=== PATIENT | female | born 1995 | race Caucasian/White ===

== ENCOUNTER → 2016-10-29 14:44 | Observation (INO) ==
[2016-10-29 13:39] LABS: Basophils % 0.2 %; Eosinophils % 0.2 %; Hematocrit 37.2 % (35.3-44.9); Hemoglobin 11.7 g/dL (11.5-15.4); Immature Granulocytes % 0.3 % (0-4); Lymphocytes # 1.6 K/mcL (0.6-4.6); Lymphocytes % 16.3 %; Mean Corpuscular HGB Conc 31.5 g/dL (31.6-35.5); Mean Corpuscular Hemoglobin 26.4 pg (28.0-33.3); Mean Platelet Volume 11.6 fL (9.4-12.4); Monocytes # 0.6 K/mcL (0.0-1.3); Monocytes % 5.6 %; Neutrophils # 7.6 K/mcL (1.6-8.9); Platelet Count 189 K/mcL (140-400); Red Blood Count 4.43 M/mcL (3.82-4.97); Red Cell Distribution Width 13.9 % (11.5-14.5); Segmented Neutrophils % 77.4 %
[2016-10-29 13:52] LABS: Alanine Aminotransferase 21 Units/L (0-55); Aspartate Amino Transferase 15 Units/L (5-34); BUN/Creatinine Ratio 17 (6-26); Blood Urea Nitrogen 11 mg/dL (7-20); Lactate Dehydrogenase 170 Units/L (159-327); Uric Acid 3.9 mg/dL (2.6-6.0); eGFR For African Americans > 60 (> 60); eGFR For Non-African Americans > 60 (> 60)
[2016-10-29 14:04] LABS: Protein/Creatinine Ratio,Urine 0.2 mg/mg (0-0.20)
--- NOTE | 2016-10-29 14:30 | OB/GYN Progress Note ---
Date of Encounter: 10/29/16 Time of Encounter: 14:28 - Assessment and Plan (1) 37 weeks gestation of Current Visit: Yes Status: Acute Contractions noted on toco, but patient is not feeling them at this time. NO cervical change from office exam (2) Elevated BP without diagnosis of hypertension Current Visit: Yes Status: Acute All PIH labs WNL. Denies symptoms. BPs in triage last two 119/76, 116/60 Discharge to home with labor and when to return to triage precautions Pt verbalizes understanding Subjective - Subjective Interval history: Pt had elevated BP at home. Pt denies headache, visual changes, vaginal bleeding or leaking of fluid. Reports good movement Antepartum ROS: movement normal, no loss of fluid, no vaginal bleeding, no contractions Objective - Vital Signs Vital Signs: Intake and Output 10/28/16 10/29/16 10/29/16 23:59 07:59 15:59 Other: Weight 115.6 kg Patient Weight 10/29/16 23:59 Weight 115.6 kg - Exam FHR: auscultation normal FHR comments: Baseline 120 Auscultation: bilateral: normal Abdomen: Present: normal appearance, soft, gravid Uterus: Present: normal Cervical dilation: 2/70 per RN - Labs Labs: Abnormal lab results MCH 26.4 pg (28.0-33.3) L 10/29/16 13:26 MCHC 31.5 g/dL (31.6-35.5) L 10/29/16 13:26 Urine Total Protein 44 mg/dL (1-14) H 10/29/16 13:26
== END | disposition home or self-care (01) ==
LOC: 1NENULAB
PROVIDERS: ADMIT Obstetrics & Gynecology; ATTEND Obstetrics & Gynecology

== ENCOUNTER 2016-10-31 00:29 | Inpatient (IN) ==
[~2016-10-31 00:29] MED LIST: Famotidine 20 MG/2 ML VIAL IVP PRN; Naloxone 0.4 MG/ML INJ IVP PRN; Ondansetron 4 MG/2 ML VIAL IVP PRN; Ringers Solution, Lactated 1,000 ML ONE
[2016-10-31] MEDS ORDERED: *HR* Nalbuphine 20 MG/ML AMPUL IVP PRN (00:30)
[2016-10-31] MEDS ORDERED: D5% in Lactated Ringers 1,000 ML IVC SCH (00:30)
[2016-10-31 00:32] LABS: Basophils % 0.1 %; Eosinophils % 0.3 %; Hematocrit 36.4 % (35.3-44.9); Hemoglobin 11.5 g/dL (11.5-15.4); Immature Granulocytes % 0.5 % (0-4); Lymphocytes # 1.6 K/mcL (0.6-4.6); Lymphocytes % 13.8 %; Mean Corpuscular HGB Conc 31.6 g/dL (31.6-35.5); Mean Corpuscular Hemoglobin 26.9 pg (28.0-33.3); Mean Corpuscular Volume 85.2 fL (83.0-100.0); Mean Platelet Volume 11.7 fL (9.4-12.4); Monocytes # 0.8 K/mcL (0.0-1.3); Monocytes % 6.5 %; Neutrophils # 9.4 K/mcL (1.6-8.9); Platelet Count 167 K/mcL (140-400); Red Blood Count 4.27 M/mcL (3.82-4.97); Red Cell Distribution Width 14.1 % (11.5-14.5); Segmented Neutrophils % 78.8 %
--- NOTE | 2016-10-31 00:35 | OB/GYN History & Physical ---
Date of Encounter: 10/31/16 Time of Encounter: 00:37 Assessment and Plan (1) 38 weeks gestation of Current visit: Yes Status: Acute Pt presents with uc's q 2 min and cervical change. Will admit and expect . History of Present Illness Chief complaint: Labor HPI: Ms. Murphy is a 21 year old female female at 38w1 d gestation presents with uc's q 2 min. She denies VB or LOF. In office today her cvx was 3 cm dilated 80 effaced and - 2 station. Her cervix is now 4-5/90/-2 and she is quite uncomfortable. Past Med Surg Social Fam HX - Past Medical History Source: patient, old records reviewed Medical history: no medical history Psychiatric history: no psych history - Past Surgical History Surgical History: no surgical history - Social History Smoking Status: Never smoker Alcohol use: none Drug use: none - Family History Father Living Status: Still Living Hx Family Cancer: Yes Obstetrical History - Pregnancies : 2 Medications and Allergies Vitamins 1 mg PO DAILY 10/29/16 [History] 3 Allergy/AdvReac Type Severity Reaction Status Date / Time No Known Allergies Allergy Verified 10/29/16 13:34 Exam - Constitutional Constitutional: well developed, well nourished, mild distress - HEENT HEENT: EOMI, PERRL - Neck Neck exam: full ROM - Lungs Respiratory exam: CTAB - Cardiovascular Cardiovascular exam: RRR - Abdomen Abdomen: Present: gravid - Extremities Deep Tendon Reflex Grade: 2+ Normal - Cervix Dilation: 5 Effacement: 90 Station: -2 - Uterus Uterus exam: Present: enlarged Results All other labs normal. - VTE Reasons for not Prescribing Prophylaxis: Treatment not Indicated - Low risk for VTE
--- NOTE | 2016-10-31 01:41 | OB Labor Progress Note ---
Date of Encounter: 10/31/16 Time of Encounter: 01:39 Labor Progress Note - Subjective Subjective: Pt getting more uncomfortable with uc's. Nubain "took the edge off". - Cervix Cervix: /-2 - Heart Tones Heart Tones: RNST - Interventions Interventions: AROM clear avg amt of fluid - Plan Plan: Expect
[2016-10-31] MEDS ORDERED: Ringers Solution, Lactated 500 ML IVC ONE (01:52)
[2016-10-31] MEDS ORDERED: EPHEDrine 50 MG/ML VIAL IVP PRN (01:52)
[2016-10-31] MEDS ORDERED: *HR* Ropivacaine/PF 0.2% 10 ML AMPUL EP ONE (01:52)
[2016-10-31] MEDS ORDERED: *HR* FentaNYL (PF) 100 MCG/2 ML VIAL EP ONE (01:52)
[2016-10-31] MEDS ORDERED: *HR* FentaNYL (PF) 100 MCG/2 ML VIAL ONE (01:57)
[2016-10-31] MEDS ORDERED: Epidural Premix (fent/bupiv) 110 ML EP ONE ×2 (01:58→09:57)
[2016-10-31] MEDS ORDERED: Epidural Premix (fent/bupiv) 110 ML EP SCH (02:00)
--- NOTE | 2016-10-31 02:28 | Anesthesia Evaluation PreOp ---
Date of Encounter: 10/31/16 Time of Encounter: 02:00 - Past History Planned Operation: [facility]VIA Cardiac History: Denies any Significant Hx Pulmonary History: Denies Any Significant HX ROAD TRAIN DRIVER History: Denies Any Significant HX Other Medical History: Denies Any Significant HX Anesthesia History: No Prior Anesthetic Complications, Past Anesthesia (Epidural ) Alcohol Use: none Drug use: none Medications and Allergies Vitamins 1 mg PO DAILY 10/29/16 [History] 3 Allergy/AdvReac Type Severity Reaction Status Date / Time No Known Allergies Allergy Verified 10/29/16 13:34 - Meds/Allergy Pre-op Review Medications Reviewed: Yes Allergies Reviewed: Yes Beta Blockers on Current Med List: No Anesthesia Results - Labs 10/31/16 00:20 Anesthesia Exam Height: 1.68 Weight: 116.5kg NPO (# of Hours): >4hr Pain Scale: 8 Pain Scale Used: Numeric (1 - 10) - HEENT Pupil (Motor): Pupils equal Mallampati: II Teeth: Normal Oral Opening: Greater than 3 - ROAD TRAIN DRIVER LOC: Oriented ROAD TRAIN DRIVER Motor: Normal RUE, Normal LUE, Normal RLE, Normal LLE, Normal Face ROAD TRAIN DRIVER Sensory: Normal: RUE, LUE, RLE, LLE, Face - Cardiac Rhythm: Regular Murmur: None JVD: No Carotid Bruit: No - Pulmonary Breath Sounds: bilateral Clear Respiratory Effort: Symmetrical Anesthesia Assess/Plan ASA Score: 2 Modified Liberty Scale for Level of Consciousness: Cooperative, oriented, and tranquil Anesthetic Plan: Regional Autologous Blood: No Monitoring Plan: Standard Monitors Recovery Plan: Other
--- NOTE | 2016-10-31 02:30 | Anesthesia Procedures ---
Date of Encounter: 10/31/16 Time of Encounter: 02:08 Procedures: Anesthesia - Epidural/Spinal Patient ID/Chart reviewed: Yes Patient examined: Yes OB Eval: Gestational age: 38.1 OB Eval: : 2 OB Eval: Hx Para: 1 OB Eval: Contractions: Non-stressed pattern Consent Obtained: Yes Supplemental Oxygen: None/Room Air Site Prep: Aseptic Technique, Sterile prep and drape, 0.5% Chlorhexidine/Alcohol Patient position: upright Local Anesthetic: Lidocaine 1% Amount of Local Anesthetic used: 3 Touhy Needle Gauge: 18 Touhy Needle Depth (cm): 9 Catheter Depth at Skin (cm): 15 Test Dose (1.5% Lido + Epi): Volume given (mls): 5 Test Dose Result: Negative Loading Dose: Fentanyl (mcg): 100 Loading Dose: Other: Ropivacaine 0.5% 9mL Loading Dose Administered: Thru Catheter Infusion Med: 0.125% Bupivacaine w/ 2 mcg/ml Fentanyl Infusion Rate (mls/hr): 15 (Bolus 5mL q15min; Max 3/hr) Catheter Secured in Place: Tegaderm Interspace Used: L3-L4 Loss of Resistance (ZEFERINO): Yes Blood: No CSF: No Paresthesia: No Procedure: L3-4 x 1 attempt. Patient tolerated well. Vitals + FHT's: VSS and FHR stable throughout. See nursing documentation.
[2016-10-31] MEDS ORDERED: Ringers Solution, Lactated 1,000 ML ONE ×2 (05:35→10:26)
[2016-10-31] MEDS ORDERED: Lidocaine 1% 20 ML MDV ONE (09:57)
[2016-10-31] MEDS ORDERED: Oxytocin 20 units/ LR 1000 mL 20 UNIT/1,000 ML BAG IVC ONE ×2 (10:28→13:27)
--- NOTE | 2016-10-31 11:04 | OB/GYN Procedure Note ---
Delivery - Delivery Date: 10/31/16 Provider: Yunior Acuna Intrapartum events: none Delivery induction: none Delivery monitor: external FHT, external uterine Anesthesia: epidural Estimated Blood Loss: 200 - Infant (s) Infant A Delivery Date: 10/31/16 Infant Delivery Time: 10:53 Presentation: vertex Position: LINA Route of delivery: Gender: Male Viability: Viable Pounds: 7 Ounces: 10 at 1 minute: 8 at 5 mins: 8 Shoulder Dystocia: not encountered Specimens collected: cord blood Placenta: spontaneous Cord: 3 umbilical vessels - Repair Episiotomy: none Laceration Description: Perineal - 2nd Degree - Complications Delivery complications: none - Disposition Mom disposition: stable in LDR disposition: stable in LDR - Comments Comments: Patient status post normal spontaneous vaginal delivery of liveborn male infant without laceration or complication. The spontaneous delivery of normal placenta with three-vessel cord. Perineum was intact. Infant was delivered from right os anterior presentation. EBL was 200 mL.
[2016-10-31] MEDS ORDERED: Ibuprofen 600 MG TABLET PO PRN (13:27)
[2016-10-31] MEDS ORDERED: Oxytocin 20 units/ LR 1000 mL 20 UNIT/1,000 ML BAG IVC SCH (13:27)
[2016-10-31] MEDS ORDERED: Measles/Mumps/Rubella Vacc 0.5 ML VIAL SQ PRN (13:27)
[2016-10-31] MEDS ORDERED: Acetaminophen 325 MG TABLET PO PRN (13:27)
[2016-10-31] MEDS ORDERED: Rho Immune Globulin 1,500 UNIT SYRINGE IM PRN (13:27)
[2016-11-01 07:50] VITALS: BP 104/70
[2016-11-01 08:44] LABS: Basophils % 0.2 %; Eosinophils # 0.1 K/mcL (0.0-0.6); Eosinophils % 0.9 %; Hematocrit 37.5 % (35.3-44.9); Hemoglobin 11.9 g/dL (11.5-15.4); Immature Granulocytes % 0.3 % (0-4); Lymphocytes # 1.8 K/mcL (0.6-4.6); Lymphocytes % 17.1 %; Mean Corpuscular HGB Conc 31.7 g/dL (31.6-35.5); Mean Platelet Volume 11.7 fL (9.4-12.4); Monocytes # 0.8 K/mcL (0.0-1.3); Platelet Count 155 K/mcL (140-400); Red Blood Count 4.41 M/mcL (3.82-4.97); Red Cell Distribution Width 14.3 % (11.5-14.5); Segmented Neutrophils % 74.5 %
[2016-11-01] MEDS ORDERED: Prenatal Vit/FA 1 EACH TABLET PO SCH (09:00)
[2016-11-01] MEDS ORDERED: Ferrous Sulfate Oral Soln 300 MG/5 ML UDC PO SCH (09:00)
--- NOTE | 2016-11-01 10:23 | Discharge Summary ---
Date of Encounter: 11/01/16 Time of Encounter: 10:23 - Discharge Diagnosis (1) 38 weeks gestation of Priority: Secondary Status: Acute (2) (normal spontaneous vaginal delivery) Priority: Primary Status: Acute Comments: Doing well, will d/c home. - Discharge Medications Home Medications: Vitamins 1 mg PO DAILY 10/29/16 [History] Allergies/Adverse Reactions: 3 Allergy/AdvReac Type Severity Reaction Status Date / Time No Known Allergies Allergy Verified 10/29/16 13:34 Data Procedures and tests throughout hospitalization: Laboratory Tests 10/31/16 10/31/16 11/01/16 00:20 11:50 08:11 WBC 11.9 H 10.8 RBC 4.27 4.41 Hgb 11.5 11.9 Hct 36.4 37.5 MCV 85.2 85.0 MCH 26.9 L 27.0 L MCHC 31.6 31.7 RDW 14.1 14.3 Plt Count 167 155 MPV 11.7 11.7 Immature Gran % 0.5 0.3 Seg Neutrophils % 78.8 74.5 Lymphocytes % 13.8 17.1 Monocytes % 6.5 7.0 Eosinophils % 0.3 0.9 Basophils % 0.1 0.2 Neutrophils # 9.4 H 8.0 Lymphocytes # 1.6 1.8 Monocytes # 0.8 0.8 Eosinophils # 0.0 0.1 Basophils # 0.0 0.0 Screen NEGATIVE Baby's Blood Type O RH POSITIVE Mother's Blood Type A RH NEGATIVE Rhogam Indicated YES Rhogam Req for Mother 1 Labs on day of discharge: Labs from last 24 hours 11/01/16 10/31/16 08:11 11:50 WBC 10.8 RBC 4.41 Hgb 11.9 Hct 37.5 MCV 85.0 MCH 27.0 L MCHC 31.7 RDW 14.3 Plt Count 155 MPV 11.7 Immature Gran % 0.3 Seg Neutrophils % 74.5 Lymphocytes % 17.1 Monocytes % 7.0 Eosinophils % 0.9 Basophils % 0.2 Neutrophils # 8.0 Lymphocytes # 1.8 Monocytes # 0.8 Eosinophils # 0.1 Basophils # 0.0 Screen NEGATIVE Baby's Blood Type O RH POSITIVE Mother's Blood Type A RH NEGATIVE Rhogam Indicated YES Rhogam Req for Mother 1 - Impressions Doing well without c/o. Appropriate lochia and cramping. Desires d/c home. Date of admission: 10/31/16 00:30 Primary care physician: Laine Vasquez CNP Consults: 10/31/16 13:27 Consult to Customer Training Specialist [CONS] Routine Comment: Vaginal delivery, consult needed - Patient Status Disposition: Home, Self-Care Condition: Good Functional capacity at discharge: independent ambulation Overall status at discharge: patient is progressing back to baseline - Discharge Instructions Follow Up With: Yunior Acuna MD [Partnered Physician] - - Diet and Activity Activity: increase activity as tolerated Hospital Course TUNNEL MUCKER Time Attestation: Total time spent providing and/or coordinating discharge services: Exam - Constitutional Vitals: Temp Pulse Resp BP Pulse Ox 97.7 F 69 12 104/70 97 11/01/16 07:49 11/01/16 07:49 11/01/16 07:49 11/01/16 07:49 11/01/16 07:49 General appearance IM: A&O X 3 - Respiratory Respiratory exam: Present: CTAB - Cardiovascular Cardiovascular exam IM: Present: RRR - GI/Abdominal GI/Abdominal exam IM: normal bowel sounds - Uterus Position: 2 Fingers Below Umbilicus - Extremities Exam Extremities exam IM: Present: full ROM - Neurological Exam Neurological exam: oriented X3 - VTE Reasons for not Prescribing Prophylaxis: Treatment not Indicated - Low risk for VTE
== END 2016-11-01 12:10 | disposition home or self-care (01) | DRG 560 ==
LOC: 1NENULAB → 1NENUOBS 13:25
PROVIDERS: ADMIT Registered Nurse; ATTEND Registered Nurse